=== PATIENT | female | born 1940 | race Two or more races ===

== ENCOUNTER → 2021-02-01 | Emergency (ER) | payer BC ==
[~2021-02-01] VITALS: Ht 152.4 cm; Wt 73.9 kg
[~2021-02-01] MED LIST: CLOPIDOGREL BIS75 MG; COZAAR25 MG; JANUVIA25 MG; METFORMIN HCL1000 M1; TOPROL XL25 M1
== END | disposition left against medical advice (07) ==
LOC: ER 13:03
DX: I63.89 Other cerebral infarction (principal); R29.818 Other symptoms and signs involving the nervous system; R47.81 Slurred speech; I10 Essential (primary) hypertension

== ENCOUNTER 2021-02-04 11:58 | Outpatient (CLI) | payer BC | END 2021-02-04 12:12 | disposition home or self-care (01) | LOC: MRI 11:58 | DX: G93.89 Other specified disorders of brain (principal); I63.89 Other cerebral infarction; I11.9 Hypertensive heart disease without heart failure; E78.2 Mixed hyperlipidemia | CPT/HCPCS: 70551 ==